=== PATIENT | male | born 1945 | race Caucasian/White ===

== ENCOUNTER 2020-11-09 11:04 | Day surgery (SDC) | payer MEDICARE ==
[~2020-11-09 11:04] MED LIST: Lactated Ringers 1,000 ML IV ONE; Sensorcaine 0.25% 10 ML ONE
[2020-11-09] MEDS ORDERED: Lactated Ringers 1,000 ML IV SCH (12:30)
--- NOTE | 2020-11-09 12:48 | HP ---
THIS REPORT WAS AMENDED ON 11/12/2020. PROCEDURE DATE: 11/09/2020 HISTORY OF PRESENT ILLNESS: The patient is a 75 y/o who had a left axilla mass, unclear etiology. It is persistent. Originally, the patient has problems with aches and pains. This axillary density should likely leave a knot and this did not seem to be the candidate for all of his symptoms and complaints. He is concerned. We recommend ordering MRI and also discussed option of pain specialist evaluation. The patient declined those options. He would be interested in biopsy of the area understanding it may not improve his aches/pains. PAST MEDICAL HISTORY: Chronic obstructive pulmonary disease, arthritis, and heart disease. Has had some diabetes and hyperlipidemia and obesity. CURRENT MEDICATIONS: Include glimepiride, Torsemide, atorvastatin, Toprol, metformin, Prazosin, amlodipine, clopidogrel, Lisinopril, Stiolto Respimat. ALLERGIES: NKDA. FAMILY HISTORY: Negative with regards to this problem. SOCIAL HISTORY: 1 pack per day smoker. Reports moderate alcohol use. REVIEW OF SYSTEMS: 10 systems reviewed negative or noncontributory other than above and per admission assessment. PHYSICAL EXAMINATION: GENERAL: No acute distress. HEENT: Sclerae nonicteric. NECK: No JVD. CHEST: Equal excursion. Nonlabored breathing. CVS: Regular rate and rhythm. ABDOMEN: Soft. Obese. EXTREMITIES: No cyanosis. NEURO: Alert, moving extremities symmetrically. PSYCH: Appropriate mood and affect. LEFT AXILLA: There is a density. Whether this is actually breast tissue, lipoma, or other etiology is unclear. He complains of these symptoms and it sounds like some may be irregular type symptoms in his shoulder and down his arm at times and aches and pains. IMPRESSION: We have discussed options. As it did not seem like this density was causing all of his symptoms, discussed option of MRI as well as evaluation by pain specialist to see what the etiology of his aches and pains is. We could technically biopsy this area, but there is a very good possibility that biopsies there could very well not relieve his other symptoms. General risks of bleeding; infection; risk of hematoma or seroma or lymphocele formation; risk of lymphedema; risks of aches, pains, burning, or numbness in the axilla or extremity; risk of sensory or motor nerve irritation, scar formation, or injury; risk of numbness on the inside aspect of his arm or weakness of his shoulder, back, or scapula; general risks of anesthesia, deep vein thrombosis, pulmonary embolism, or pneumonia; risk of cardiopulmonary event, but not limited to, very real possibility that biopsy of normal lymph density whether lipomatous or other etiology may very well not improve his symptoms and he still might need consideration of follow-up with a pain specialist or other evaluation.
[2020-11-09] MEDS ORDERED: Versed 2 MG/2 ML Injection ONE (13:16)
[2020-11-09] MEDS ORDERED: DIPRIVAN 200 MG/20 ML IV ONE (13:16)
[2020-11-09] MEDS ORDERED: SUBLIMAZE 100 MCG/2 ML ONE ×3 (13:16→14:38)
[2020-11-09] MEDS ORDERED: KEFZOL 1 GM ONE ×2 (13:30→13:31)
[2020-11-09 17:22] VITALS: BP 156/74; PULSE 57; O2SAT 91
--- NOTE | 2020-11-10 14:09 | OP ---
SURGERY DATE: 11/09/2020 SURGERY TIME: 1314 PREOPERATIVE DIAGNOSIS: 1. LARGE LEFT AXILLARY NODULE OR NODES. 2. HISTORY OF POSTERIOR SHOULDER ACHES AND PAINS AND UPPER EXTREMITY ACHES AND PAINS. POSTOPERATIVE DIAGNOSIS: 1. LIPOMATOUS DENSITY WITH ABNORMALLY ENLARGED THICKENED AXILLARY LYMPH NODES. PROCEDURE: 1. Excisional biopsy left axillary lymph nodes with lipoma. SURGEON: Dr. Dale Barajas. ANESTHESIA: General. ESTIMATED BLOOD LOSS: Minimal. INDICATIONS: As noted above. Risks and benefits explained in detail, but not limited to. Consent obtained. Size confirmed and marked in pre-op holding area. Patient was explained once again that we would send biopsy, but removal of this node or lipoma very well may not improve his aches and pains and even might have different aches or pains from the procedure itself. He still desired to try this at this time. If this failed to improve his symptoms, he would follow-up with a [employer] for other etiology. Otherwise, the general risks of the procedure, but not limited to as outlined per surgical consult and office visit in H&P. DESCRIPTION OF PROCEDURE AND FINDINGS: The patient was taken to the OR. General anesthesia was induced. His axilla prepped and draped in the usual sterile fashion. Official time-out for planned procedure. Transverse incision made over the denser area in question. Dissection carried down. Superficial subq was grossly unremarkable down to the axillary fat pad which is open. He did have a lipomatous density. He additionally had some hard and some abnormally thickened, hardened lymph nodes. This was carefully mobilized upward with a combination of clips and ligature device carefully sealing lymphatics and tiny venules/arterioles going directly to the node staying away from the long thoracic nerve and deep axilla adjacent to the chest wall as well as staying away from the thoracodorsal nerve lying on the latissimus posteriorly. Stayed well above this dissecting this lipomatous density that was about 8 cm in size. At least 2 or 3 very hardened, abnormally thickened, enlarged lymph nodes included in the specimen to be sent for lymph node protocol. A copious amount of irrigation irrigating clear. Again, the long thoracic nerve protected posteromedially and had avoided the thoracodorsal along the latissimus, much deeper on the latissimus dorsi. Good hemostasis noted. Wound was irrigated out. EMEKA drain was left in the axillary space out the inferior stab wound. The deeper subq junction with the axillary fascia was closed with 3-0 Vicryl. Skin closed with 4-0 Vicryl. Just prior to doing so, one other hardened lymph node was carefully isolated from the rest of the normal axillary fat pad and passed off. This is second from the other specimen. These are to be sent by lymph node protocol to evaluate for lymphoma or other etiology. If there is any issues with local pathology, this is to be sent to [place] to [facility] if needed. Otherwise, again, after closing the superior subq with 3-0 Vicryl, skin closed with 4-0 Vicryl. Some DermaBond a couple layers and sterile pressure dressing applied. EMEKA drain secured with PDS suture, placed to bulb suction. There were no immediate complications. There was no family to discuss any findings out in the waiting area. Will see him back in the office next week.
== END 2020-11-09 16:50 | disposition home or self-care (01) ==
LOC: SDC 11:04
PROVIDERS: ATTEND Surgery
DX: D17.1 Benign lipomatous neoplasm of skin and subcutaneous tissue of trunk (principal); R59.0 Localized enlarged lymph nodes; E11.9 Type 2 diabetes mellitus without complications; Z79.899 Other long term (current) drug therapy
CPT/HCPCS: 36415; 82947; 88307; 88341; 88342; 99100; J0690; J2250; J2704; J3010